=== PATIENT | male | born 1955 | race Caucasian/White ===

== ENCOUNTER 2017-05-05 12:10 | Emergency (ER) | payer MEDICARE ==
[~2017-05-05] VITALS: Ht 180.3 cm; Wt 73.0 kg
[2017-05-05 13:15] VITALS: BP 113/74
== END 2017-05-05 18:16 | disposition left against medical advice (07) ==
LOC: ER 13:57
DX: Z53.21 Procedure and treatment not carried out due to patient leaving prior to being seen by health care provider (principal)

== ENCOUNTER 2017-05-06 12:11 | Emergency (ER) | payer MEDICARE ==
[~2017-05-06] VITALS: Ht 182.9 cm; Wt 64.0 kg
[2017-05-06 14:00] VITALS: BP 111/79
== END 2017-05-06 17:37 | disposition home or self-care (01) ==
LOC: ER 12:52
DX: R19.7 Diarrhea, unspecified (principal); M19.90 Unspecified osteoarthritis, unspecified site; F17.200 Nicotine dependence, unspecified, uncomplicated; Z85.118 Personal history of other malignant neoplasm of bronchus and lung; Z90.49 Acquired absence of other specified parts of digestive tract
CPT/HCPCS: 99281